=== PATIENT | female | born 1995 | race Caucasian/White ===

== ENCOUNTER 2019-01-20 23:59 | Emergency (ER) | payer MEDICAID ==
[~2019-01-20] VITALS: Ht 160 cm; Wt 51.3 kg
[2019-01-21 00:04] VITALS: Ht 160 cm; Wt 51.3 kg
[2019-01-21 01:40] VITALS: BP 124/80
== END 2019-01-21 01:40 | disposition home or self-care (01) ==
LOC: ED 23:59
DX: M94.0 Chondrocostal junction syndrome [Tietze] (principal)
CPT/HCPCS: J1885